=== PATIENT | female | born 1935 | race Caucasian/White ===

== ENCOUNTER 2024-05-31 08:10 | Inpatient (IN) ==
[2024-05-31] MEDS: 0.9 % SODIUM CHLORIDE 1,000 ML IV ONE ×2 (08:31→09:58)
[2024-05-31 08:58] LABS: Basophils # (Auto) 0 K/mcL (0.00-0.30); Basophils % (Auto) 0 % (0.0-2.0); Eosinophils # (Auto) 0 K/mcL (0.00-0.70); Eosinophils % (Auto) 0 % (0.0-7.0); Hematocrit 39.7 % (34.1-44.9); Hemoglobin 12.3 g/dL (11.2-15.7); Lymphocytes # (Auto) 0.86 K/mcL (1.50-4.80); Lymphocytes % (Auto) 8.1 % (15.5-49.0); Mean Cell Volume 102.1 fL (80.0-100.0); Mean Platelet Volume 10.7 fL (8.8-12.5); Monocytes # (Auto) 0.79 K/mcL (0.10-0.90); Monocytes % (Auto) 7.5 % (1.0-12.0); Neutrophils % (Auto) 83.6 % (38.0-78.0); Platelet Count 182 K/mcL (140-440); RBC 3.89 M/mcL (3.59-5.38); WBC 10.6 K/mcL (4.5-11.0)
[2024-05-31 09:44] LABS: Beta Hydroxybutyrate 6.04 mmol/L (<0.27)
[2024-05-31 09:46] LABS: ALT/SGPT 26 U/L (<40); AST/SGOT 35 U/L (<32); Albumin 3.8 gm/dL (3.2-5.2); Albumin/Globulin Ratio 1.4 (1.0-2.3); Alkaline Phosphatase 100 U/L (39-117); Bilirubin,Total 0.8 mg/dL (0.1-1.0); Blood Urea Nitrogen 50 mg/dL (8-23); Calcium 10.6 mg/dL (8.6-10.4); Carbon Dioxide 10 mmol/L (22-30); Chloride 96 mmol/L (96-108); Globulin 2.7 gm/dL (2.2-3.7); Glomerular Filtration Rate 25; Glucose 816 mg/dL (70-105); Potassium 6.1 mmol/L (3.3-5.1); Sodium 135 mmol/L (133-145)
[2024-05-31] MEDS: INSULIN REGULAR, HUMAN 1 UNIT/0.01 ML UNIT IV ONE ×6 (09:58→19:18)
[2024-05-31] MEDS: LACTATED RINGERS 1,000 ML IV ONE ×3 (10:05→16:16)
[2024-05-31] MEDS: INSULIN REGULAR, HUMAN 50 UNIT in 0.9 % SODIUM CHLORIDE 99.5 ML IV SCH ×2 (10:33→16:21)
[2024-05-31 13:31] LABS: Blood Urea Nitrogen 51 mg/dL (8-23); Calcium 9.7 mg/dL (8.6-10.4); Carbon Dioxide 10 mmol/L (22-30); Chloride 101 mmol/L (96-108); Glomerular Filtration Rate 25; Glucose 688 mg/dL (70-105); Potassium 4.3 mmol/L (3.3-5.1); Sodium 139 mmol/L (133-145)
[2024-05-31 14:55] LABS: Appearance,Urine Clear (Clear); Bacteria,Urine 0 /hpf (0); Bilirubin,Urine Negative (Negative); Color,Urine Yellow; Glucose,Urine (UA) 500 mg/dL (Negative); Ketones,Urine 40 mg/dL (Negative); Leukocyte Esterase,Urine Negative /uL (Negative); Nitrate,Urine Negative (Negative); PH,Urine 5.5 (5.0-9.0); Protein,Urine Negative (Negative); Specific Gravity,Urine 1.015 (1.000-1.035); Urine Blood Moderate ery/mcL (Negative); Urine RBC 5 /hpf (0-3); Urine Squamous Epithelial Cell 2 /hpf (0-4); Urine WBC 1 /hpf (0-4); Urobilinogen,Urine Normal
[2024-05-31] MEDS ORDERED: ACETAMINOPHEN 325 MG TABLET PO PRN (15:11)
[2024-05-31] MEDS ORDERED: NALOXONE HCL 0.4 MG/ML VIAL IV PRN (15:11)
[2024-05-31] MEDS ORDERED: NON FORMULARY MEDICATION 1 DOSE MISCELL (Insulin Glargine [Lantus Solostar U-100 Insulin] SUB-Q SCH (15:11)
[2024-05-31] MEDS ORDERED: GLUCAGON 1 MG SUB-Q PRN (15:11)
[2024-05-31] MEDS: 0.9 % SODIUM CHLORIDE 1,000 ML IV SCH ×2 (15:25)
[2024-05-31] MEDS: 0.9 % SODIUM CHLORIDE 10 ML SYRINGE IV SCH (15:25)
[2024-05-31 16:07] LABS: Phosphorous 2.5 mg/dL (2.5-4.5)
[2024-05-31 16:14] LABS: ALT/SGPT 24 U/L (<40); AST/SGOT 37 U/L (<32); Albumin 3.5 gm/dL (3.2-5.2); Albumin/Globulin Ratio 1.6 (1.0-2.3); Alkaline Phosphatase 85 U/L (39-117); Bilirubin,Total 0.6 mg/dL (0.1-1.0); Blood Urea Nitrogen 50 mg/dL (8-23); Carbon Dioxide 17 mmol/L (22-30); Globulin 2.2 gm/dL (2.2-3.7); Glomerular Filtration Rate 27; Glucose 492 mg/dL (70-105); Sodium 141 mmol/L (133-145)
[2024-05-31 16:22] LABS: Chloride 105 mmol/L (96-108)
[2024-05-31] MEDS: INSULIN REGULAR, HUMAN 1 UNIT/0.01 ML UNIT IV PRN (19:29)
[2024-05-31] MEDS: INSULIN REGULAR, HUMAN 1 UNIT/0.01 ML UNIT ONE (19:52)
[2024-05-31] MEDS: ATORVASTATIN 20 MG TABLET PO SCH (20:54)
[2024-05-31] MEDS: MONTELUKAST 10 MG TABLET PO SCH (20:54)
[2024-05-31] MEDS: COQ10 100 MG PO SCH (21:03)
[2024-05-31] MEDS: NEUTRA PHOS 1 PACKET PO SCH (22:17)
[2024-05-31] MEDS: DEXTROSE 5%-1/2NS W/20MEQ KCL 1,000 ML IV SCH (22:17)
[2024-05-31] MEDS: NEUTRA PHOS 1 PACKET ONE (22:31)
[2024-06-01 00:07] LABS: Carbon Dioxide 20 mmol/L (22-30); Chloride 112 mmol/L (96-108); Potassium 4.1 mmol/L (3.3-5.1); Sodium 143 mmol/L (133-145)
[2024-06-01] MEDS: DEXTROSE 50% 50 ML SYRINGE IV PRN (00:08)
[2024-06-01] MEDS: DEXTROSE 50% 50 ML SYRINGE IV ONE (00:31)
[2024-06-01 06:04] LABS: Hemoglobin 11.8 g/dL (11.2-15.7); Mean Cell Volume 101.3 fL (80.0-100.0); Mean Corpuscular HGB Conc 31.1 g/dL (31.0-36.0); Platelet Count 150 K/mcL (140-440); RBC 3.75 M/mcL (3.59-5.38); Red Cell Distribution Width 13.3 % (11.5-14.5); WBC 15.8 K/mcL (4.5-11.0)
[2024-06-01 07:47] LABS: Beta Hydroxybutyrate 1.27 mmol/L (<0.27)
[2024-06-01 08:14] LABS: ALT/SGPT 26 U/L (<40); AST/SGOT 53 U/L (<32); Albumin 3.1 gm/dL (3.2-5.2); Albumin/Globulin Ratio 1.4 (1.0-2.3); Alkaline Phosphatase 77 U/L (39-117); Bilirubin,Total 0.9 mg/dL (0.1-1.0); Blood Urea Nitrogen 50 mg/dL (8-23); Calcium 9.7 mg/dL (8.6-10.4); Carbon Dioxide 18 mmol/L (22-30); Chloride 112 mmol/L (96-108); Globulin 2.2 gm/dL (2.2-3.7); Glomerular Filtration Rate 34; Glucose 225 mg/dL (70-105); Potassium 5.1 mmol/L (3.3-5.1); Sodium 140 mmol/L (133-145)
[2024-06-01 08:59] LABS: Band Neutrophils % 2 % (0-10); Lymphocytes % 6 % (15-49); Monocytes % (Manual) 4 % (1-12); Platelet Estimate NORMAL (Normal); RBC Morphology NORMAL (Normal); Reactive Lymphocytes 1 % (0-2); Segmented Neutrophils % 87 % (38-78)
[2024-06-01] MEDS: ENOXAPARIN 40 MG/0.4 ML SYRINGE SQ SCH (09:14)
[2024-06-01] MEDS: ASPIRIN 81 MG TAB.CHEW PO SCH (09:14)
[2024-06-01 11:41] LABS: Phosphorous 3.2 mg/dL (2.5-4.5)
[2024-06-01] MEDS: buPROPion 100 MG TABLET PO SCH (11:42)
[2024-06-01] MEDS: INSULIN GLARGINE, HUMAN 1 UNIT/0.01 ML SQ SCH (11:48)
[2024-06-01] MEDS: INSULIN LISPRO 1 UNIT/0.01 ML UNIT SQ SCH (11:49)
[2024-06-01 14:29] LABS: Appearance,Urine Clear (Clear); Bacteria,Urine 0 /hpf (0); Bilirubin,Urine Negative (Negative); Color,Urine Yellow; Glucose,Urine (UA) >=1000 mg/dL (Negative); Ketones,Urine Trace mg/dL (Negative); Leukocyte Esterase,Urine Negative /uL (Negative); Nitrate,Urine Negative (Negative); PH,Urine 5.5 (5.0-9.0); Protein,Urine Negative (Negative); Urine Blood Small ery/mcL (Negative); Urine Hyaline Cast 1 /lph (0-2); Urine RBC 5 /hpf (0-3); Urine Squamous Epithelial Cell 0 /hpf (0-4); Urine WBC 3 /hpf (0-4); Urobilinogen,Urine Normal
[2024-06-01 14:32] LABS: Carbon Dioxide 19 mmol/L (22-30); Chloride 109 mmol/L (96-108); Potassium 4.7 mmol/L (3.3-5.1); Sodium 139 mmol/L (133-145)
[2024-06-01 22:37] LABS: Carbon Dioxide 22 mmol/L (22-30); Chloride 111 mmol/L (96-108); Potassium 4.7 mmol/L (3.3-5.1); Sodium 141 mmol/L (133-145)
[2024-06-02 06:27] LABS: Hematocrit 35.3 % (34.1-44.9); Hemoglobin 11.2 g/dL (11.2-15.7); Mean Cell Volume 100.6 fL (80.0-100.0); Mean Corpuscular HGB Conc 31.7 g/dL (31.0-36.0); Mean Platelet Volume 10.3 fL (8.8-12.5); Platelet Count 124 K/mcL (140-440); RBC 3.51 M/mcL (3.59-5.38); Red Cell Distribution Width 13.7 % (11.5-14.5)
[2024-06-02 06:53] LABS: ALT/SGPT 31 U/L (<40); AST/SGOT 52 U/L (<32); Albumin 2.8 gm/dL (3.2-5.2); Albumin/Globulin Ratio 1.5 (1.0-2.3); Alkaline Phosphatase 76 U/L (39-117); Blood Urea Nitrogen 37 mg/dL (8-23); Calcium 9.8 mg/dL (8.6-10.4); Carbon Dioxide 24 mmol/L (22-30); Chloride 113 mmol/L (96-108); Globulin 1.9 gm/dL (2.2-3.7); Glomerular Filtration Rate 51; Glucose 125 mg/dL (70-105); Potassium 4.2 mmol/L (3.3-5.1); Sodium 143 mmol/L (133-145)
[2024-06-02 07:55] LABS: Eosinophils % (Manual) 1 % (0-7); Lymphocytes % 11 % (15-49); Monocytes % (Manual) 4 % (1-12); Platelet Estimate NORMAL (Normal); RBC Morphology NORMAL (Normal); Reactive Lymphocytes 3 % (0-2); Segmented Neutrophils % 81 % (38-78)
[2024-06-02] MEDS: INSULIN LISPRO 1 UNIT/0.01 ML UNIT SQ SCH (20:02)
[2024-06-03 07:03] LABS: ALT/SGPT 50 U/L (<40); AST/SGOT 77 U/L (<32); Albumin/Globulin Ratio 1.1 (1.0-2.3); Alkaline Phosphatase 113 U/L (39-117); Bilirubin,Total 0.9 mg/dL (0.1-1.0); Blood Urea Nitrogen 25 mg/dL (8-23); Calcium 10.3 mg/dL (8.6-10.4); Carbon Dioxide 21 mmol/L (22-30); Chloride 111 mmol/L (96-108); Globulin 2.7 gm/dL (2.2-3.7); Glomerular Filtration Rate 58; Glucose 66 mg/dL (70-105); Potassium 4.3 mmol/L (3.3-5.1); Sodium 142 mmol/L (133-145)
[2024-06-03 07:04] LABS: Hematocrit 46.3 % (34.1-44.9); Hemoglobin 13.5 g/dL (11.2-15.7); Mean Cell Volume 108.9 fL (80.0-100.0); Mean Corpuscular HGB Conc 29.2 g/dL (31.0-36.0); Platelet Count 124 K/mcL (140-440); RBC 4.25 M/mcL (3.59-5.38); Red Cell Distribution Width 13.3 % (11.5-14.5); WBC 7.3 K/mcL (4.5-11.0)
[2024-06-03 08:41] LABS: Basophils % (Manual) 1 % (0-2); Lymphocytes % 27 % (15-49); Monocytes % (Manual) 2 % (1-12); Platelet Estimate DECREASED (Normal); RBC Morphology NORMAL (Normal); Reactive Lymphocytes 5 % (0-2); Segmented Neutrophils % 65 % (38-78)
== END 2024-06-03 12:36 | DRG 919 ==
LOC: ED 08:10 → ICU 14:37
PROVIDERS: ADMIT Internal Medicine Critical Care Medicine; ATTEND Internal Medicine Critical Care Medicine